=== PATIENT | male | born 1985 | race African-American/Black ===

== ENCOUNTER 2017-04-19 17:01 | Emergency (ER) | payer OTHER ==
[2017-04-19] MEDS ORDERED: Acetaminophen 500 MG TAB ONE (17:33)
[2017-04-19] MEDS ORDERED: HYDROcodone/Acetaminophen 10/325 mg Tablet ONE (17:33)
[2017-04-19] MEDS ORDERED: Diazepam 5 MG TAB ONE (17:33)
[2017-04-19] MEDS ORDERED: Ibuprofen 800 MG TAB ONE (17:33)
--- NOTE | 2017-04-19 19:41 | CT ---
CT THORACIC SPINE NONCONTRAST 04/19/17 HISTORY: Back injury. FINDINGS: Vertebral body heights and alignment are maintained. Mild osteophytosis is present. No acute fracture or dislocation are apparent. IMPRESSION: No acute osseous abnormalities of the thoracic spine are demonstrated. POS: [facility]NA
== END 2017-04-19 18:15 | disposition home or self-care (01) ==
LOC: MADERS 17:01
DX: S39.012A Strain of muscle, fascia and tendon of lower back, initial encounter (principal); V49.9XXA Car occupant (driver) (passenger) injured in unspecified traffic accident, initial encounter
CPT/HCPCS: 72128